=== PATIENT | female | born 1965 | race Caucasian/White ===

== ENCOUNTER → 2023-03-31 09:30 | Outpatient (REF) | payer OTHER, SELFPAY | LOC: HWWDC 09:30 | PROVIDERS: ATTENDING PHYSICIAN Obstetrics & Gynecology; FAMILY PHYSICIAN Family Medicine | DX: Z12.31 Encounter for screening mammogram for malignant neoplasm of breast (principal) | CPT/HCPCS: 77063; 77067 ==

== ENCOUNTER → 2024-04-04 15:16 | Outpatient (REF) | payer OTHER, SELFPAY | LOC: HWWDC 15:16 | PROVIDERS: ATTENDING PHYSICIAN Obstetrics & Gynecology; FAMILY PHYSICIAN Family Medicine; REFERRING PHYSICIAN Surgery | DX: Z12.31 Encounter for screening mammogram for malignant neoplasm of breast (principal) | CPT/HCPCS: 77063; 77067 ==

== ENCOUNTER → 2024-12-02 12:19 | Outpatient (REF) | payer OTHER, SELFPAY | LOC: MRI 3T 12:19 | PROVIDERS: ATTENDING PHYSICIAN Nurse Practitioner Adult Health; FAMILY PHYSICIAN Physician Assistant Medical | DX: Z15.01 Genetic susceptibility to malignant neoplasm of breast (principal); Z91.89 Other specified personal risk factors, not elsewhere classified; Z80.3 Family history of malignant neoplasm of breast; R92.323 Mammographic fibroglandular density, bilateral breasts | CPT/HCPCS: 77049; A9585 ==